=== PATIENT | female | born 1985 | race Two or more races ===

== ENCOUNTER 2016-07-12 17:50 | Emergency (ER) | payer OTHER ==
[~2016-07-12] VITALS: Ht 167.6 cm; Wt 49.0 kg
[2016-07-12 18:30] VITALS: BP 107/71
== END 2016-07-12 18:32 | disposition home or self-care (01) ==
LOC: ER 17:56
DX: T21.01XA Burn of unspecified degree of chest wall, initial encounter (principal); L03.313 Cellulitis of chest wall; X58.XXXA Exposure to other specified factors, initial encounter; Y92.89 Other specified places as the place of occurrence of the external cause; Y93.89 Activity, other specified; Y99.8 Other external cause status
CPT/HCPCS: 99283; A4606; Z7610

== ENCOUNTER 2016-07-26 14:00 | Emergency (ER) | payer OTHER ==
[~2016-07-26] VITALS: Ht 167.6 cm; Wt 49.0 kg
[2016-07-26 14:14] VITALS: BP 134/77
== END 2016-07-26 14:36 | disposition home or self-care (01) ==
LOC: ER 14:02
DX: T21.01XA Burn of unspecified degree of chest wall, initial encounter (principal); E03.9 Hypothyroidism, unspecified; X58.XXXA Exposure to other specified factors, initial encounter; Y92.89 Other specified places as the place of occurrence of the external cause; Y93.89 Activity, other specified; Y99.8 Other external cause status
CPT/HCPCS: 99283; A4606; Z7610